=== PATIENT | male | born 1935 | race Caucasian/White ===

== ENCOUNTER 2018-02-26 00:10 | Emergency (ER) | payer OTHER, BC ==
[~2018-02-26] VITALS: Ht 175.3 cm; Wt 97.5 kg
[2018-02-26] MEDS ORDERED: METFORMIN HCL500 MG PO (00:22)
[2018-02-26] MEDS ORDERED: LIPITOR 20 MG T20 M1 PO (00:22)
[2018-02-26] MEDS ORDERED: DOFETILIDE250 MCG PO (00:23)
[2018-02-26] MEDS ORDERED: ANUSOL-HC25 MG RECTAL ×2 (00:23→00:26)
[2018-02-26] MEDS ORDERED: ELIQUIS5 MG PO (00:23)
[2018-02-26] MEDS ORDERED: ONDANSETRON ODT4 MG PO (00:24)
[2018-02-26] MEDS ORDERED: ALLOPURINOL 10100 M1 PO (00:24)
[2018-02-26] MEDS ORDERED: FIBERCON625 M1 PO (00:25)
[2018-02-26] MEDS ORDERED: CARVEDILOL3.125 MG PO (00:25)
[2018-02-26] MEDS ORDERED: IPRAT-ALBUT 0.5-3 ML INH (00:25)
[2018-02-26] MEDS ORDERED: IRON325 PO (00:26)
[2018-02-26] MEDS ORDERED: SSD CREAM 1% 5050 GM TOP (00:26)
[2018-02-26] MEDS ORDERED: TRAMADOL 50 MG50 MG PO (00:26)
[2018-02-26] MEDS ORDERED: NORCO 5-325 TA1 EACH PO (05:43)
[2018-02-26 07:43] VITALS: BP 134/86
== END 2018-02-26 07:44 | disposition short-term general hospital (02) ==
LOC: ER 00:10
DX: M25.552 Pain in left hip (principal); F03.90 Unspecified dementia, unspecified severity, without behavioral disturbance, psychotic disturbance, mood disturbance, and anxiety; I48.91 Unspecified atrial fibrillation; M81.0 Age-related osteoporosis without current pathological fracture; M10.9 Gout, unspecified; I10 Essential (primary) hypertension; G47.30 Sleep apnea, unspecified; E78.5 Hyperlipidemia, unspecified; F32.9 Major depressive disorder, single episode, unspecified; F41.9 Anxiety disorder, unspecified; K21.9 Gastro-esophageal reflux disease without esophagitis; E11.9 Type 2 diabetes mellitus without complications; Z86.2 Personal history of diseases of the blood and blood-forming organs and certain disorders involving the immune mechanism